=== PATIENT | male | born 2000 | race African-American/Black ===

== ENCOUNTER 2021-05-28 08:36 | Emergency (ER) | payer OTHER ==
[~2021-05-28] VITALS: Ht 177.8 cm; Wt 70.0 kg
[2021-05-28] MEDS ORDERED: IBUPROFEN 600MG TABLET PO ONE (10:00)
[2021-05-28] MEDS ORDERED: LIDOCAINE HCL/PF 1% 10 MG/ML 5ML VIAL INFIL ONE (10:00)
[2021-05-28] MEDS ORDERED: LIDOCAINE HCL 1% 10 MG/ML 10ML VIAL INJ SCH (10:00)
[2021-05-28 11:45] VITALS: BP 126/86
== END 2021-05-28 11:46 | disposition home or self-care (01) ==
LOC: ER 09:16
DX: S61.511A Laceration without foreign body of right wrist, initial encounter (principal); X58.XXXA Exposure to other specified factors, initial encounter; Y93.89 Activity, other specified; Y92.89 Other specified places as the place of occurrence of the external cause; Y99.8 Other external cause status
CPT/HCPCS: 12002; 73110; 99283; J3490